=== PATIENT | male | born 1990 | race Caucasian/White ===

== ENCOUNTER 2020-12-15 17:04 | Emergency (ER) | payer OTHER, SELFPAY ==
[2020-12-15 17:11] VITALS: BP 217/129; PULSE 91; RESP 18; TEMP 36.7; O2SAT 98; BMI 47.4
[2020-12-15 17:30] VITALS: BP 217/129; PULSE 91; RESP 18; TEMP 36.7; O2SAT 98
== END 2020-12-15 19:00 | disposition left against medical advice (07) ==
PROVIDERS: Emergency Provider Emergency Medicine; PCP Physician Assistant Medical
DX: R03.0 Elevated blood-pressure reading, without diagnosis of hypertension (principal)
CPT/HCPCS: 99283

== ENCOUNTER 2021-02-27 17:26 | Emergency (ER) | payer OTHER, SELFPAY ==
--- NOTE | 2021-02-27 | ECG_ITS ---
Test Reason : CHEST PAIN Blood Pressure : / mmHG Vent. Rate : 082 BPM Atrial Rate : 082 BPM P-R Int : 144 ms QRS Dur : 088 ms QT Int : 362 ms P-R-T Axes : 039 045 -23 degrees QTc Int : 422 ms Normal sinus rhythm Nonspecific T wave abnormality Abnormal ECG No previous ECGs available Referred By: Generic ED Physician Electronically Signed By:QI ALMAZAN
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
[2021-02-27 17:53] VITALS: BP 192/121; PULSE 92; RESP 18; TEMP 37.2; O2SAT 96; BMI 49.2
[2021-02-27 20:41] VITALS: BP 179/107; PULSE 78; RESP 16; O2SAT 96
[2021-02-27 21:22] VITALS: BP 188/120; PULSE 78
[2021-02-27] MEDS: cloNIDine HCL 0.2 MG TABLET PO (21:22)
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
[2021-02-27 22:57] VITALS: BP 168/101; PULSE 78; RESP 16; O2SAT 97
--- NOTE | 2021-02-27 23:15 | PC.NURSE ---
PT BP SAFE TO GO HOME HE WILL GO HOME WITH NEW PRESCRIPTION AND BP MONITOR.
== END 2021-02-27 23:18 | disposition home or self-care (01) ==
PROVIDERS: Emergency Provider Internal Medicine; PCP Physician Assistant Medical
DX: S29.9XXA Unspecified injury of thorax, initial encounter (principal); S21.102A Unspecified open wound of left front wall of thorax without penetration into thoracic cavity, initial encounter; S21.101A Unspecified open wound of right front wall of thorax without penetration into thoracic cavity, initial encounter; G44.309 Post-traumatic headache, unspecified, not intractable; M79.631 Pain in right forearm; M79.10 Myalgia, unspecified site; V43.52XA Car driver injured in collision with other type car in traffic accident, initial encounter; Y93.9 Activity, unspecified; Y92.410 Unspecified street and highway as the place of occurrence of the external cause; Y99.9 Unspecified external cause status; Z79.899 Other long term (current) drug therapy
CPT/HCPCS: 70450; 71046; 93005; 99284

== ENCOUNTER 2021-07-02 13:43 | Emergency (ER) | payer OTHER, SELFPAY ==
--- NOTE | ~2021-07-02 | XR_ITS ---
EXAMINATION: XR CHEST CLINICAL INFORMATION: Shortness of breath COMPARISON: Previous chest x-ray February 2021 TECHNIQUE: Frontal view of the chest was obtained. FINDINGS: The cardiac and mediastinal contours are stable. There are increased central hilar markings questionable for bronchial wall thickening or airways disease. No evidence of a lobar pneumonia is seen. There is no pleural effusion or pneumothorax. There are degenerative changes of the spine. XR/XR chest 1V IMPRESSION: Increased hilar and central lung markings questionable for bronchial wall thickening or airways disease.
[2021-07-02 14:53] VITALS: BP 215/145; PULSE 101; RESP 18; TEMP 36.2; O2SAT 96; BMI 39.5
[2021-07-02 16:02] LABS: Influenza A PCR NEGATIVE (Negative); Influenza B PCR NEGATIVE (Negative); Resp Syncy Virus RNA Qual PCR NEGATIVE (Negative); SARS COV2 PCR INHOUSE NEGATIVE (Negative)
== END 2021-07-02 19:00 | disposition left against medical advice (07) ==
PROVIDERS: Physician Assistant; Emergency Provider Emergency Medicine
DX: J02.9 Acute pharyngitis, unspecified (principal); R05.9 Cough, unspecified; Z20.822 Contact with and (suspected) exposure to COVID-19
CPT/HCPCS: 0241U; 71045; 99282; 99283